=== PATIENT | male | born 1985 | race Two or more races ===

== ENCOUNTER 2019-06-08 16:07 | Emergency (ER) | payer MEDICAID ==
[~2019-06-08] VITALS: Ht 172.7 cm; Wt 71.9 kg
[2019-06-08 16:14] VITALS: BP 142/89
[2019-06-08 16:39] LABS: BASOPHILS # (AUTO) 0.03 x10^3/uL (0-0.1); BASOPHILS % (AUTO) 1 % (0-1); EOSINOPHILS # (AUTO) 0.11 x10^3/uL (0-0.4); EOSINOPHILS % (AUTO) 2 % (1-7); LYMPHOCYTES # (AUTO) 0.93 x10^3/uL (1-3.4); LYMPHOCYTES % (AUTO) 19 % (22-44); MD NO; MEAN CORPUSCULAR HGB CONC 33.1 g/dL (33.2-36.2); MEAN CORPUSCULAR VOLUME 90.5 fL (81-97); MEAN PLATELET VOLUME 8.1 fL (7.4-10.4); MONOCYTES # (AUTO) 0.71 x10^3/uL (0.2-0.8); MONOCYTES % (AUTO) 14 % (2-9); NEUTROPHILS # (AUTO) 3.13 x10^3/uL (1.8-6.8); NEUTROPHILS % (AUTO) 64 % (42-75); PLATELET COUNT 230 x10^3/uL (130-400); RED BLOOD COUNT 6.02 x10^6/uL (4.38-5.82); RED CELL DISTRIBUTION WIDTH 14.6 % (9.4-14.8)
[2019-06-08 16:47] LABS: ALANINE AMINOTRANSFERASE 58 U/L (12-78); ALBUMIN 3.5 g/dL (3.4-5.0); ANION GAP 2 mmol/L (5-15); CALCIUM 8.8 mg/dL (8.5-10.1); CHLORIDE 106 mmol/L (98-107); CREATININE 1.07 mg/dL (0.7-1.3)
[2019-06-08 16:49] LABS: ALKALINE PHOSPHATASE 97 U/L (45-117); BILIRUBIN,TOTAL 0.5 mg/dL (0.2-1.0); TOTAL PROTEIN 7.9 g/dL (6.4-8.2)
--- NOTE | 2019-06-08 19:06 | NUR ---
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
--- NOTE | 2019-06-08 19:19 | NUR ---
not in lobby
--- NOTE | 2019-06-08 19:40 | NUR ---
not in lobby
== END 2019-06-08 19:42 | disposition left against medical advice (07) ==
LOC: ED 19:40
DX: R10.9 Unspecified abdominal pain (principal); R11.2 Nausea with vomiting, unspecified; R19.7 Diarrhea, unspecified
CPT/HCPCS: 36415; 80053; 83690; 85025; 99283

== ENCOUNTER 2019-12-12 10:50 | Emergency (ER) | payer MEDICAID ==
[~2019-12-12] VITALS: Ht 172.7 cm; Wt 73.1 kg
[2019-12-12] MEDS ORDERED: CEFTRIAXONE 250 MG ONE (11:59)
[2019-12-12] MEDS ORDERED: DOXYCYCLINE 100MG TABLET ONE (11:59)
[2019-12-12] MEDS ORDERED: CEFTRIAXONE 1,000 MG IM ONE (12:00)
[2019-12-12] MEDS ORDERED: DOXYCYCLINE 100MG TABLET PO ONE (12:00)
[2019-12-12 12:29] VITALS: BP_DIAS 83
[2019-12-12 12:45] VITALS: BP_SYST 155
--- NOTE | 2019-12-13 07:06 | NUR ---
late entry for 12/12/19 - PT ASKED FOR URINE SAMPLE. PT STATED HE DIDN'T NEED TO GIVE ONE BECAUSE THE DOCTOR TOOK WHAT THEY NEEDED ALREADY. PT MEDICATED PER EMAR.
== END 2019-12-12 12:47 | disposition home or self-care (01) ==
LOC: ED 11:14
DX: A54.9 Gonococcal infection, unspecified (principal); A74.9 Chlamydial infection, unspecified; I10 Essential (primary) hypertension
CPT/HCPCS: 87491; 87591; 96372; 99283; J0696

== ENCOUNTER 2020-01-02 09:15 | Emergency (ER) | payer MEDICAID ==
[~2020-01-02] VITALS: Ht 172.7 cm; Wt 75.0 kg
--- NOTE | 2020-01-02 09:35 | NUR ---
NASIR [facility] PT ON A HOLD ON [employer] PT DENIES HI SI NO INTENT TO HARM SELF OR OTHERS PER THE PT REQUEST FOOD AND BUS PASS TO GET TO HIS CAR [employer] PPLACED IN STORAGE
--- NOTE | 2020-01-02 09:40 | NUR ---
MEAL ORDERED AND FOOD GIVEN
[2020-01-02 11:23] VITALS: BP 138/89
--- NOTE | 2020-01-02 12:08 | NUR ---
PSY IN TO SEE PT TO BE A DC
== END 2020-01-02 12:12 | disposition home or self-care (01) ==
LOC: ED 09:37
DX: Z00.00 Encounter for general adult medical examination without abnormal findings (principal); E11.9 Type 2 diabetes mellitus without complications
CPT/HCPCS: 99283

== ENCOUNTER 2020-09-09 15:26 | Emergency (ER) | payer MEDICAID ==
[~2020-09-09] VITALS: Ht 175.3 cm; Wt 68.4 kg
[2020-09-09 15:31] VITALS: BP 125/92
[2020-09-09] MEDS ORDERED: BICILLIN-LA 2,400,000 UNITS/4 ML IM ONE (16:00)
[2020-09-09] MEDS ORDERED: CEFTRIAXONE 1,000 MG IM ONE (16:00)
[2020-09-09] MEDS ORDERED: LIDOCAINE-MPF 1%, 5ML ONE (16:09)
--- NOTE | 2020-09-09 16:47 | NUR ---
PT WAS GIVEN IM ROCEPHIN BUT REFUSED BICILLIN IM; STATING THAT HE IS AFRAID OF NEEDLES, THEN PT ELOPED.
--- NOTE | 2020-09-09 16:50 | NUR ---
NOTIFIED DR. BAILEY AND MEGHNA ARAUJO THAT PATIENT ELOPED. DR. BAILEY STATES THAT PATIENT IS A TUBERCULOSIS RULE-OUT AND REQUESTED THAT THIS RN ATTEMPT TO CALL PATIENT TO REQUEST THAT HE COME BACK TO BE ADMITTED TO THE HOSPITAL.
--- NOTE | 2020-09-09 16:55 | NUR ---
UNABLE TO REACH PATIENT VIA NUMBER ON FILE. CALLED [facility] AND GAVE A DESCRIPTION OF PATIENT, INCLUDING HEIGHT AND WEIGHT TO DISPATCH, WHO STATE THEY WILL PUT OUT A BULLETIN TO LOOK FOR PATIENT.
== END 2020-09-09 16:48 | disposition left against medical advice (07) ==
LOC: ED 16:46
DX: J15.9 Unspecified bacterial pneumonia (principal); Z20.2 Contact with and (suspected) exposure to infections with a predominantly sexual mode of transmission; I10 Essential (primary) hypertension; E11.9 Type 2 diabetes mellitus without complications
CPT/HCPCS: 71045; 96372; 99284; J0696

== ENCOUNTER 2020-11-20 19:16 | Emergency (ER) | payer MEDICAID ==
[~2020-11-20] VITALS: Ht 172.7 cm; Wt 68.8 kg
--- NOTE | 2020-11-20 20:22 | NUR ---
pa at bedside for eval
[2020-11-20] MEDS ORDERED: SODIUM CHLORIDE 0.9% 1,000ML IVBOLUS ONE (21:00)
[2020-11-20] MEDS ORDERED: CEFTRIAXONE 1,000 MG in DEXTROSE 5% 50 ML IVPB ONE (21:00)
--- NOTE | 2020-11-20 21:15 | NUR ---
THIS RN ASKED KETTLE COOK TO START IV
--- NOTE | 2020-11-20 21:17 | NUR ---
PT REFUSING IV FOR ANTIBIOTICS, ERP AWARE
--- NOTE | 2020-11-20 21:20 | NUR ---
PT WAS INFORMED THAT IT WAS OKAY NOT TO HAVE IV. PT EXPLAINED THAT HE HAS BEEN AN ADDICT SINCE HE WAS 11 AND WAS NEWLY SOBER. HE WAS AFRAID TO HAVE ANY IV'S FOR FEAR THAT IT WOULD CAUSE RELAPSE. PT IN ROOM, DENIES NEEDS AT THIS TIME.
[2020-11-20 21:22] LABS: BASOPHILS % (AUTO) 1 % (0-1); EOSINOPHILS % (AUTO) 5 % (1-7); LYMPHOCYTES % (AUTO) 9 % (22-44); MEAN CORPUSCULAR HEMOGLOBIN 30.2 pg (27.5-34.5); MEAN CORPUSCULAR HGB CONC 34.6 g/dL (33.2-36.2); MEAN PLATELET VOLUME 8.1 fL (7.4-10.4); MONOCYTES % (AUTO) 10 % (2-9); NEUTROPHILS % (AUTO) 76 % (42-75); PLATELET COUNT 204 x10^3/uL (130-400); RED BLOOD COUNT 5.53 x10^6/uL (4.38-5.82); RED CELL DISTRIBUTION WIDTH 16.2 % (9.4-14.8)
[2020-11-20 21:31] LABS: ALBUMIN 3.2 g/dL (3.4-5.0); ANION GAP 7 mmol/L (5-15); CALCIUM 8.3 mg/dL (8.5-10.1); CHLORIDE 106 mmol/L (98-107); CREATININE 1.12 mg/dL (0.7-1.3)
--- NOTE | 2020-11-20 21:50 | NUR ---
Patient given discharge instructions and they have confirmed that they understand the instructions. Patient ambulatory with steady gait.
[2020-11-20 21:56] VITALS: BP 177/90
== END 2020-11-20 22:33 | disposition home or self-care (01) ==
LOC: ED 20:34
DX: J18.0 Bronchopneumonia, unspecified organism (principal); I10 Essential (primary) hypertension; E11.9 Type 2 diabetes mellitus without complications
CPT/HCPCS: 36415; 71045; 80048; 82040; 85025; 86480; 93005; 99285